=== PATIENT | female | born 1985 | race African-American/Black ===

== ENCOUNTER 2024-06-25 10:23 | Emergency (ER) | payer MEDICAID ==
[~2024-06-25] VITALS: Ht 170.2 cm; Wt 77.0 kg
[2024-06-25 10:31] VITALS: BP 169/90; PULSE 80; RESP 18; TEMP 98.1; O2SAT 98
[2024-06-25] MEDS: HYDROXYZINE 25MG TABLET PO ONE (10:57)
[2024-06-25] MEDS ORDERED: HYDROXYZINE 25MG TABLET PO NR (11:00)
== END 2024-06-25 11:18 | disposition home or self-care (01) ==
LOC: ER 10:23
DX: F41.9 Anxiety disorder, unspecified (principal); Z88.6 Allergy status to analgesic agent; Z86.59 Personal history of other mental and behavioral disorders
CPT/HCPCS: 99283

== ENCOUNTER 2025-02-19 11:11 | Emergency (ER) | payer OTHER, MEDICAID ==
[~2025-02-19] VITALS: Ht 185.4 cm; Wt 100.0 kg
[2025-02-19] MEDS: HALOPERIDOL LACTATE 5MG/ML VIAL IM ONE (11:30)
[2025-02-19 12:08] LABS: BASOPHILS % 0.6 % (0.0-2.0); EOSINOPHILS % 1.5 % (0.0-5.0); HEMATOCRIT. 37.8 % (36.0-48.0); HEMOGLOBIN. 12.5 g/dL (12.0-16.0); LYMPHOCYTES % 11.5 % (20.0-50.0); MEAN CORPUSCULAR HEMOGLOBIN 28.1 pg (28.0-32.0); MEAN CORPUSCULAR VOLUME 85.2 fL (81.0-99.0); MEAN PLATELET VOLUME 8.5 fl (7.4-10.4); MONOCYTES % 6.1 % (2.0-8.0); NEUTROPHILS % 80.3 % (40.0-76.0); PLATELET 279 x1000/uL (130-400); RED BLOOD CELL COUNT 4.44 mill/uL (4.2-5.4); RED CELL DISTRIBUTION WIDTH 14.5 % (11.6-14.6); WHITE BLOOD COUNT 10.7 x1000/uL (4.5-11.0)
[2025-02-19 12:15] LABS: CHLORIDE 108 mEq/L (98-107); POTASSIUM 3.6 mEq/L (3.5-5.1); SODIUM 142 mEq/L (136-145)
[2025-02-19 12:16] LABS: CALCIUM 8.7 mg/dL (8.7-10.4); CARBON DIOXIDE 26 mEq/L (21-32)
[2025-02-19 12:21] LABS: ETHANOL BLOOD < 10 mg/dL (<10); GLUCOSE 88 mg/dL (70-105); UREA NITROGEN BLOOD 12 mg/dL (9-23)
[2025-02-19 12:23] LABS: ACETAMINOPHEN < 2 ug/mL (10-30)
[2025-02-19] MEDS: DIPHENHYDRAMINE 50MG/ML VIAL IM PRN (12:52)
[2025-02-19 13:50] VITALS: O2SAT 100
[2025-02-19 17:36] LABS: HCG SCREEN NEGATIVE
[2025-02-19 19:34] LABS: CLARITY URINE CLEAR (CLEAR); COLOR URINE YELLOW (YELLOW); GLUCOSE URINE NEGATIVE (NEGATIVE); KETONES URINE TRACE (NEGATIVE); LEUKOCYTE ESTERASE URINE NEGATIVE (NEGATIVE); NITRITE URINE NEGATIVE (NEGATIVE); OCCULT BLOOD URINE NEGATIVE (NEGATIVE); PH URINE 6.5 (4.5-8.0); PROTEIN URINE NEGATIVE (NEGATIVE); SPECIFIC GRAVITY URINE 1.014 (1.005-1.030)
[2025-02-19 19:45] LABS: *AMPHETAMINES SCREEN URINE NEGATIVE (NEGATIVE); *BARBITURATES SCREEN URINE NEGATIVE (NEGATIVE); *BENZODIAZEPINES SCREEN URINE PRESUMPTIVE POSITIVE (NEGATIVE); *COCAINE SCREEN URINE PRESUMPTIVE POSITIVE (NEGATIVE); CANNABINOID URINE SCREEN PRESUMPTIVE POSITIVE (NEGATIVE); ECSTASY MDMA SCREEN URINE NEGATIVE (NEGATIVE); METHADONE URINE SCREEN NEGATIVE (NEGATIVE); OPIATES URINE SCREEN NEGATIVE (NEGATIVE); PHENCYCLIDINE URINE SCREEN PRESUMTIVE POSITIVE (NEGATIVE)
[2025-02-21] MEDS: DIPHENHYDRAMINE 50MG CAPSULE PO ONE (18:19)
[2025-02-22 10:26] VITALS: BP 130/62; PULSE 72; RESP 18; TEMP 36.8; O2SAT 100
== END 2025-02-22 10:29 | disposition home or self-care (01) ==
LOC: ER 11:11
DX: F39 Unspecified mood [affective] disorder (principal); F20.9 Schizophrenia, unspecified; Z88.6 Allergy status to analgesic agent; Z20.822 Contact with and (suspected) exposure to COVID-19; Z79.899 Other long term (current) drug therapy
CPT/HCPCS: 80305; 80048; 81003; 80307; 80329; 80320; 84703; 85025; 36415; 96372; 99285; 87426; J1200; J1630; Q0163; G0480